=== PATIENT | male | born 1955 | race Caucasian/White ===

== ENCOUNTER 2018-08-03 10:21 | Day surgery (SDC) | payer MEDICAID ==
[~2018-08-03] VITALS: Ht 167.6 cm; Wt 84.1 kg
[~2018-08-03 10:21] MED LIST: ASPI-1265 PO; CHOL10002 PO; CRAN425C5 PO; LORA-512 PO; MONT10TA24 PO; OMEP20CA10 PO; TRAZ-219 PO; VIT1CAPS39 PO; VITAMIN B6 PO
[2018-08-03 11:30] VITALS: BP 125/99
[2018-08-03] MEDS ORDERED: MULT1TAB74 PO (11:46)
[2018-08-03] MEDS ORDERED: ATOR20TA PO (11:47)
[2018-08-03] MEDS ORDERED: CALC-8 PO (11:47)
[2018-08-03] MEDS ORDERED: MIDAZolam 5mg/5ml vial ONE (12:20)
[2018-08-03] MEDS ORDERED: fentaNYL/PF 50MCG/1 ML 2ML syringe ONE (12:20)
[2018-08-03 13:50] VITALS: BP 107/59
[2018-08-03 14:00] VITALS: BP 105/78
[2018-08-03 14:10] VITALS: BP 111/75
[2018-08-03 14:20] VITALS: BP 117/76
== END 2018-08-03 14:40 | disposition home or self-care (01) ==
LOC: GI LAB 10:21
PROVIDERS: ATTEND Internal Medicine Gastroenterology
DX: Z08 Encounter for follow-up examination after completed treatment for malignant neoplasm (principal); D12.3 Benign neoplasm of transverse colon; K62.1 Rectal polyp; K64.8 Other hemorrhoids; Z86.010 Personal history of colon polyps; Z98.0 Intestinal bypass and anastomosis status; Z85.038 Personal history of other malignant neoplasm of large intestine
CPT/HCPCS: 45380; 45385; 99152; 99153; J2250; J3010; J7030; A4620